=== PATIENT | female | born 1980 | race Caucasian/White ===

== ENCOUNTER 2024-07-06 17:09 | Observation (INO) | payer OTHER, SELFPAY ==
[2024-07-02 15:18] VITALS: BMI 36.0
[2024-07-06] VITALS (22 sets, daily range): BP systolic 115–173; BP diastolic 67–120; PULSE 57–105; RESP 16–20; TEMP 36.6–37.2; O2SAT 95–100
--- NOTE | 2024-07-06 | FL_ITS ---
FINAL REPORT CLINICAL HISTORY: ERCP IN OR FT .8 MINS 35.73 mGy FINDINGS: Fluoroscopic imaging was provided for ERCP. There is balloon dilatation of the distal common bile duct. No contrast is seen within the biliary system. 0.8 minutes of fluoroscopy time was reported. 35.73 mGy. IMPRESSION: Fluoroscopy for ERCP. Reviewed, Interpreted and Dictated by Azar Alfaro MD Transcribed by Breanna Judge Authenticated and [facility]
[2024-07-06 13:46] LABS: Urine Pregnancy, HCG Qual. Negative (Negative)
--- NOTE | 2024-07-06 13:57 | P.PNANES_ITS ---
[facility] Disclaimer: The information contained in this section may have been updated after the patient was seen, as this information can be updated by other users. Medical History Chronic migraine Hyperthyroidism Hypertension Anxiety Depression Surgical History History of cholecystectomy H/O tubal ligation H/O knee surgery H/O: H/O gastric sleeve Family History Father Coronary artery disease Aortic aneurysm Social History Smoking Status: Never smoker alcohol intake: current substance use type: denies use current occupational status: employed Travel in the last 8 weeks: None Have you lived/traveled outside US in past 30 days?: No Contact w/someone who lives/traveled outside US past 30 days?: No Exposure to someone with infectious disease in past 14 days?: No Do you have a fever (greater than 100.4 F or 38 C)?: No Have you tested positive for COVID-19: No Exposed to someone with COVID-19 in past 14 days?: No Do you have a sore throat?: No Do you have a cough?: No Do you have any weakness?: No Do you have any diarrhea?: No Are you experiencing any unusual bleeding?: No Do you have any muscle aches/pain?: No Do you have any abdominal pain?: No Are you experiencing loss of taste or smell?: No [facility] Anesthesia Checklist Patient Identification Patient Identification: Arm Band and Verbal (Name & ) Structural Data Admitted From: Home Planned Operative Procedure/s: ERCP Consent for Planned Operative Procedure(s) Verified: Yes Verified Documents: Surgical Consent NPO Status Verified Time NPO: 00:00 Additional verifications Patient : No Anesthesia Reactions: No Hx Blood Transfusions: No Blood Transfusion Reaction: No Cephalosporin Allergy: No Previous Colonoscopy: No Cardiovascular Assessment Heart Sounds: S1 & S2 Pulse Strength: Baseline Pulse Rhythm: Regular Peripheral Edema: No Airway Assessment Mallampati Score:: Class I C-Spine Mobility Assessed: Yes TMJ Mobility Assessed: Yes Dentition: Good Dentition Neurological Assessment Level of Consciousness: Awake, Alert and Appropriate Hx Seizures: No Numbness or tingling in extremities: No Anesthesia Plan Anesthesia Risk discussed: Yes Anesthesia Plan: Verified ASA Class: III Anesthesia Type: General
[2024-07-06] MEDS: LACTATED RINGERS 1000ML 1,000 ML 50 ML IV ×2 (14:16→14:17)
--- NOTE | 2024-07-06 15:17 | P.HP_ITS ---
History of Present Illness *Admission Date: 07/06/24 *Reason for visit:: Right upper quadrant abdominal pain/sphincter of Oddi dysfunction *History of present illness: Mrs. Davila is a 43-year-old female with recurrence of her right upper quadrant abdominal pain that started back a couple of months ago. This is constant and daily. She does have a former history of sphincter of Oddi dysfunction and had ERCP with biliary sphincterotomy. She is here for ERCP and possible sphincterotomy/sphincteroplasty. The examination is deemed medically necessary for ERCP. The patient has been seen, interviewed and examined prior to the procedure by both myself and the anesthesia provider. [facility] Disclaimer: The information contained in this section may have been updated after the patient was seen, as this information can be updated by other users. Medical History (Updated 07/06/24 @ 14:01 by Velia Peguero RN) Jugular vein thrombosis, right Neuropathy Hypothyroid History of gastroesophageal reflux (GERD) Stroke Chronic migraine Hypertension Anxiety Depression Surgical History (Updated 07/06/24 @ 14:01 by Velia Peguero RN) History of surgery History of cholecystectomy H/O tubal ligation H/O knee surgery H/O: H/O gastric sleeve Family History Father Coronary artery disease Aortic aneurysm Social History (Updated 07/06/24 @ 14:02 by Velia Peguero RN) Smoking Status: Never smoker alcohol intake: current substance use type: denies use current occupational status: employed Travel in the last 8 weeks: None Have you lived/traveled outside US in past 30 days?: No Contact w/someone who lives/traveled outside US past 30 days?: No Exposure to someone with infectious disease in past 14 days?: No Do you have a fever (greater than 100.4 F or 38 C)?: No Have you tested positive for COVID-19: Yes Exposed to someone with COVID-19 in past 14 days?: No Do you have a sore throat?: No Do you have a cough?: No Do you have any weakness?: No Are you experiencing any nausea/vomitting?: No Do you have any diarrhea?: No Are you experiencing any unusual bleeding?: No Do you have any muscle aches/pain?: No Do you have any abdominal pain?: No Are you experiencing loss of taste or smell?: No Review of Systems Review of Systems Review of systems (narrative): Negative *Cardiovascular Comments: Negative *Gastrointestinal Comments: Negative *Genitourinary Comments: Negative *Musculoskeletal Comments: Negative *Neurologic Comments: Negative Meds Home Medications and Allergies Home Medications ?Medication ?Instructions ?Recorded ?Confirmed ?Type alprazolam 0.5 mg tablet 0.5 mg PO DAILY 06/15/24 07/06/24 History cariprazine 1.5 mg capsule 1.5 mg PO DAILY 06/15/24 07/06/24 History (Vraylar) cyanocobalamin (vitamin B-12) 1,000 mcg SQ [id number] 06/15/24 07/06/24 History 1,000 mcg/mL injection solution dicyclomine 20 mg tablet 20 mg PO TID 06/15/24 07/06/24 History ergocalciferol (vitamin D2) 1,250 1,250 mcg PO WEEKLY 06/15/24 07/06/24 History mcg (50,000 unit) capsule famotidine 40 mg tablet 40 mg PO BID 06/15/24 07/06/24 History flecainide 50 mg tablet 50 mg PO BID 06/15/24 07/06/24 History folic acid 1 mg tablet 1 mg PO DAILY 06/15/24 07/06/24 History gabapentin 300 mg capsule 300 mg PO TID 06/15/24 07/06/24 History levothyroxine 175 mcg tablet 175 mcg PO DAILY 06/15/24 07/06/24 History (Synthroid) pantoprazole 40 mg tablet,delayed 40 mg PO ONCE 06/15/24 07/06/24 History release promethazine 25 mg tablet 25 mg PO Q6H PRN . 06/15/24 07/06/24 History rimegepant 75 mg disintegrating 75 mg PO Q OTHER DAY 06/15/24 07/06/24 History tablet (Nurtec ODT) rivaroxaban 10 mg tablet (Xarelto) 10 mg PO DAILY 06/15/24 07/06/24 History tizanidine 4 mg tablet 4 mg PO Q6H 06/15/24 07/06/24 History ubrogepant 100 mg tablet (Ubrelvy) 100 mg PO DAILY 06/15/24 07/06/24 History valsartan 80 mg tablet 80 mg PO DAILY 06/15/24 07/06/24 History New Prescriptions to Start Prescriptions: Allergies Allergy/AdvReac Type Severity Reaction Status Date / Time Sulfa (Sulfonamide Allergy Unknown Verified 07/06/24 13:40 Antibiotics) allergy reaction Exam Data for Last 24 hours Vital signs and Labs for Last 24 Hours: Temp Pulse Resp BP Pulse Ox O2 Del Method 97.9 F 57 L 18 150/91 H 100 Room Air 07/06/24 13:45 07/06/24 13:45 07/06/24 13:45 07/06/24 13:45 07/06/24 13:45 07/06/24 13:45 Laboratory Results - last 24 hr 07/06/24 13:28: Urine HCG, Qual Negative *Routine HEENT Exam Head: Present normocephalic Eye: Present EOMI and PERRL ENT: Present mucous membranes moist *Routine Neck Exam Neck: Present supple *Routine Respiratory Exam Respiratory: Present CTA bilaterally *Routine Cardiovascular Exam Cardiovascular: Present RRR *Routine Abdominal Exam Abdominal: Present soft and normoactive bowel sounds; Absent tenderness *Routine Rectal Exam Rectal:: deferred *Routine Genitalia Exam Genitalia:: deferred *Routine Extremities Exam Extremities: Absent cyanosis, clubbing or edema *Routine Skin Exam Skin: Present warm; Absent rash *Routine Neurological Exam Neurological: Present alert and oriented X3 Assessment and Plan *Assessment and plan (1) RUQ pain: Status: Acute Category: Medical Code(s): R10.11 - Right upper quadrant pain (2) Sphincter of Oddi dysfunction: Status: Acute Category: Medical Code(s): K83.4 - Spasm of sphincter of Oddi Plan A/P: 1. Right upper quadrant abdominal pain with prior history of sphincter of Oddi dysfunction and prior biliary sphincterotomy is the preprocedural diagnosis. The patient will be anesthetized/sedated using MAC sedation. The patient has been seen and examined. Cardiac and lung assessment prior to the examination is stable. Proceed with planned diagnostic/therapeutic ERCP to assess for restenosis of the ampulla
--- NOTE | 2024-07-06 15:20 | HMH.PROCNOTE ---
[facility] Procedure Note Date: 07/06/24 Time: 15:39 Procedure Note:: ERCP procedure Report: Endoscopic retrograde cholangiopancreatography with biliary sphincterotomy and biliary sphincteroplasty (TTS balloon dilation) Endoscopist: Mario Stovall II, MD Referring Physician: Grzegorz Santamaria MD [id number], [facility] [place] [address] Date of Procedure: July 06, 2024 Equipment: Olympus 180 side viewing endoscope duodenoscope Sedation: MAC sedation Indication: Mrs. Davila is a 43-year-old female with a history of sphincter of Oddi dysfunction/biliary stenosis. The patient did have prior ERCP with biliary sphincterotomy and had done very well since her ERCP which was more than 10 years ago. She just had recurrence of right upper quadrant abdominal pain a couple of months ago. It is a dull pain with intermittent episodes of severe burning and stabbing pain in the right upper quadrant that can last up to an hour and be severe. She did have a CAT scan and lab work by her primary care physician and at [facility] and these were reportedly normal. She does have a lot of bloating, belching and gassiness. She will occasionally have some diarrhea. Procedure: Prior to the procedure, a history and physical exam was performed, and patient's medications and allergies were reviewed. The risks, benefits and alternatives of the sedation and procedure were discussed with the patient. All questions were answered and informed consent was obtained. The patient was brought to the fluoroscopic radiology room. Patient identification and proposed procedure were verified by the physician and the nurse. The patient was placed in a swimmer's position between left lateral decubitus and prone position and the scope was passed under direct vision. Throughout the procedure, the patient's blood pressure, pulse, and oxygen saturations were monitored continuously. The ERCP was accomplished without difficulty. The patient tolerated the procedure well. Findings: The duodenoscope was passed directly into the upper esophagus and advanced to the second portion of the duodenum. The ampulla was well-visualized. The common bile duct was selectively cannulated with a guidewire and cannula. A cholangiogram was performed and there was normal filling of the common bile duct which was approximately 7 to 8 mm and normal filling of the common hepatic duct, bifurcation and intrahepatic biliary system. There were no strictures or filling defects. There was slow drainage of bile and contrast suggestive of some recurrence of sphincter of Oddi dysfunction. I did extend the prior biliary sphincterotomy by 2 to 3 mm with extravasation of bile and contrast. Next, I did perform sphincteroplasty with TTS balloon dilation of the ampulla to 8 mm with a TTS hydrostatic balloon. The pancreatic duct was not cannulated intentionally. Impression: 1. Recurrent sphincter of Oddi dysfunction status post biliary sphincterotomy and sphincteroplasty (TTS balloon dilation to 8 mm) Plan: I will discuss the findings with the patient and family. I would discontinue dicyclomine. I would consider low-dose buspirone which has been treatment to improve visceral/sphincter of Oddi accommodation and neuromodulation.
--- NOTE | 2024-07-06 15:51 | EXP.ANES.I ---
[facility] Anesthesia Record Part I Anesthesia Record I Intake, IV Amount: 600 Hydration: Adequate Estimated blood loss (mL): 0 Urine output (mL): 0 Blood Products used (#): none Blood Pressure: 128/86 SaO2: 100 Pulse Rate: 84 Airway Patency: Patent Respiratory Rate: 16 Temperature: 98.1 F Patient is:: Drowsy and Stable Stable to PACU at:: 15:50
--- NOTE | 2024-07-06 16:10 | SUR.PHASEI ---
pt started c/o chest tightness and became hypertensive. MANUEL Morin called for orders. RT caled for ekg.
--- NOTE | 2024-07-06 16:13 | SUR.PHASEI ---
Verbal orders given by POWDERED METAL SUPERVISOR RT at the bedside for ekg
[2024-07-06] MEDS: HYDRALAZINE 20MG/ML VIAL 20 MG (16:15)
--- NOTE | 2024-07-06 16:15 | ECG_ITS ---
APPROVED REPORT Exam: Resting ECG HR:65 bpm ECG Measurements Heart Rate 65 AXES NJ 159 P 53 QRSd 88 QRS 24 QT 427 T 0 QTc 438 Conclusion SINUS RHYTHM NONSPECIFIC T-WAVE ABNORMALITY BORDERLINE ECG UNCONFIRMED REPORT Electronically signed by : Ortiz Macario MD 07/08/2024 08:51:09
[2024-07-06] MEDS: diphenhydrAMINE 50MG/ML VIAL 50 MG (16:25)
--- NOTE | 2024-07-06 16:25 | SUR.PHASEI ---
pt became flushed and face became red faced. verbal order for benadryl given by carmen leal
[2024-07-06] MEDS: METOPROLOL TARTRATE 5MG/5ML VIAL 5 MG IV (16:30)
--- NOTE | 2024-07-06 16:30 | SUR.PHASEI ---
mel at the bedside. pt hypertensive at this time. Mel gave verbal order for metoprolol.
--- NOTE | 2024-07-06 16:47 | SUR.PHASEI ---
spoke with dr fleming, he recommended a hospitalist consult. Dr Mcgowan called at this time for consult
--- NOTE | 2024-07-06 16:50 | SUR.PHASEI ---
Dr stanton and Dr Stovall at the bedside
[2024-07-06] MEDS: LORazepam 2MG/ML VIAL 2 MG (16:51)
[2024-07-06] MEDS: ENALAPRILAT 2.5MG/2ML VIAL 1.25 MG IV (17:03)
--- NOTE | 2024-07-06 17:08 | SUR.PHASEII ---
Spoke with talon Clifton. pt to be admitted to room 213.
[2024-07-06 17:32] LABS: Basophils % 0.5 % (0.1-2.0); Eosinophils % 0.5 % (0.1-12.0); Hematocrit 43.6 % (37.0-47.0); Hemoglobin 14.7 g/dL (12.2-16.2); Lymphocytes # 1.3 K/mm3 (0.7-4.5); Mean Corpuscular HGB Conc 33.7 g/dL (31.8-35.4); Mean Corpuscular Hemoglobin 31.9 pg (27.0-31.2); Mean Corpuscular Volume 94.6 fl (81-99); Mean Platelet Volume 10.8 fl (7.4-10.4); Monocytes # 0.3 K/mm3 (0.1-1.0); Monocytes % 3.8 % (1.7-9.3); Neutrophils # 6.6 K/mm3 (1.8-7.8); Neutrophils % 78.8 % (37.0-80.0); Platelet Count 293 K/mm3 (142-424); Red Blood Count 4.61 M/mm3 (4.20-5.40); Red Cell Distribution Width 12.3 % (11.5-17.5); White Blood Count 8.4 K/mm3 (4.8-10.8)
--- NOTE | 2024-07-06 17:32 | P.HP_ITS ---
History of Present Illness *Admission Date: 07/06/24 *Reason for visit:: chest pressure *History of present illness: Mrs. Davila is a 43-year-old female with recurrence of her right upper quadrant abdominal pain that started back a couple of months ago. She has been having constant daily discomfort. Former history of sphincter of Oddi dysfunction. Was brought in for elective ERCP with biliary sphincterotomy. Tolerated procedure well with good results. While in PACU however patient developed severe hypertension with systolics 170-190. Developed chest pressure. Having numerous PVCs. EKG was obtained that did not show any significant ischemic changes or ST elevations. Medicine consulted to evaluate in the PACU. Patient having pressure-like sensation with her hypertension. Denies nausea or vomiting but does have flushed appearance. After discussion with GI, both agreed that patient would benefit from observation overnight and management of her hypertension and serial enzymes for her heart. Admitted to medicine with monitoring on telemetry. Upon further questioning, patient states she had a stress test about 8 to 9 months ago that showed PVCs but no other ischemic injury. Was started on flecainide at that time for PVCs and has had significant improvement in her arrhythmia. Has been tolerating valsartan 80 mg nightly for blood pressure with better improvement. Used to have blood pressures in the 150 range until starting that medication and now normally has systolics 1 20-1 30. Regular GERD that is controlled with PPI and H2 db. Alert and oriented x 4. at bedside. [facility] Disclaimer: The information contained in this section may have been updated after the patient was seen, as this information can be updated by other users. Medical History (Updated 07/06/24 @ 19:02 by Martín Molrey MD) Jugular vein thrombosis, right Neuropathy Hypothyroid History of gastroesophageal reflux (GERD) Stroke Chronic migraine Hypertension Anxiety Depression Surgical History History of surgery History of cholecystectomy H/O tubal ligation H/O knee surgery H/O: H/O gastric sleeve Family History Father Coronary artery disease Aortic aneurysm Social History Smoking Status: Never smoker alcohol intake: current substance use type: denies use current occupational status: employed Travel in the last 8 weeks: None Have you lived/traveled outside US in past 30 days?: No Contact w/someone who lives/traveled outside US past 30 days?: No Exposure to someone with infectious disease in past 14 days?: No Do you have a fever (greater than 100.4 F or 38 C)?: No Have you tested positive for COVID-19: Yes Exposed to someone with COVID-19 in past 14 days?: No Do you have a sore throat?: No Do you have a cough?: No Do you have any weakness?: No Are you experiencing any nausea/vomitting?: No Do you have any diarrhea?: No Are you experiencing any unusual bleeding?: No Do you have any muscle aches/pain?: No Do you have any abdominal pain?: No Are you experiencing loss of taste or smell?: No Review of Systems Review of Systems Review of systems (narrative): 14 point review of systems performed, pertinent positives and negatives as per HPI Meds Home Medications and Allergies Home Medications ?Medication ?Instructions ?Recorded ?Confirmed ?Type alprazolam 0.5 mg tablet 0.5 mg PO DAILY 06/15/24 07/06/24 History cariprazine 1.5 mg capsule 1.5 mg PO DAILY 06/15/24 07/06/24 History (Vraylar) cyanocobalamin (vitamin B-12) 1,000 mcg SQ .[id number] 06/15/24 07/06/24 History 1,000 mcg/mL injection solution dicyclomine 20 mg tablet 20 mg PO TID 06/15/24 07/06/24 History ergocalciferol (vitamin D2) 1,250 1,250 mcg PO WEEKLY 06/15/24 07/06/24 History mcg (50,000 unit) capsule famotidine 40 mg tablet 40 mg PO BID 06/15/24 07/06/24 History flecainide 50 mg tablet 50 mg PO BID 06/15/24 07/06/24 History folic acid 1 mg tablet 1 mg PO DAILY 06/15/24 07/06/24 History gabapentin 300 mg capsule 300 mg PO TID 06/15/24 07/06/24 History levothyroxine 175 mcg tablet 175 mcg PO DAILY 06/15/24 07/06/24 History (Synthroid) pantoprazole 40 mg tablet,delayed 40 mg PO ONCE 06/15/24 07/06/24 History release promethazine 25 mg tablet 25 mg PO Q6H PRN . 06/15/24 07/06/24 History rimegepant 75 mg disintegrating 75 mg PO Q OTHER DAY 06/15/24 07/06/24 History tablet (Nurtec ODT) rivaroxaban 10 mg tablet (Xarelto) 10 mg PO DAILY 06/15/24 07/06/24 History tizanidine 4 mg tablet 4 mg PO Q6H 06/15/24 07/06/24 History ubrogepant 100 mg tablet (Ubrelvy) 100 mg PO DAILY 06/15/24 07/06/24 History valsartan 80 mg tablet 80 mg PO DAILY 06/15/24 07/06/24 History buspirone 10 mg tablet 10 mg PO BID #60 tabs 07/06/24 Rx [id number] 1 cap PO .With meals #100 caps 07/06/24 Rx 36,000-114,000-180,000 unit capsule,delay rel (Creon) New Prescriptions to Start Prescriptions: buspirone Mario Stovall II [id number] [Creon] Mario Stovall II Allergies Allergy/AdvReac Type Severity Reaction Status Date / Time Sulfa (Sulfonamide Allergy Unknown Verified 07/06/24 13:40 Antibiotics) allergy reaction Exam Data for Last 24 hours Vital signs and Labs for Last 24 Hours: Temp Pulse Resp BP Pulse Ox O2 Del Method 98.1 F 94 H 18 158/96 H 100 Room Air 07/06/24 15:52 07/06/24 17:10 07/06/24 17:10 07/06/24 17:10 07/06/24 17:10 07/06/24 17:10 Laboratory Results - last 24 hr 07/06/24 13:28: Urine HCG, Qual Negative I & O for Last 24 hours: Intake & Output 07/03/24 07/04/24 07/05/24 07/06/24 23:59 23:59 23:59 23:59 Intake Total 600 / 600 Balance 600 / 600 Constitutional Constitutional: mild distress, obese and cooperative *Routine HEENT Exam Head: Present normocephalic Eye: Present EOMI and PERRL ENT: Present mucous membranes moist Comments: Facial flushing *Routine Neck Exam Neck: Present supple *Routine Respiratory Exam Respiratory: Present CTA bilaterally; Absent rhonchi, wheezes or crackles *Routine Cardiovascular Exam Cardiovascular: Present RRR *Routine Abdominal Exam Abdominal: Present soft and normoactive bowel sounds; Absent tenderness *Routine Rectal Exam Rectal:: deferred *Routine Genitalia Exam Genitalia:: deferred *Routine Extremities Exam Extremities: Absent cyanosis, clubbing or edema *Routine Skin Exam Skin: Present intact and warm; Absent rash *Routine Neurological Exam Neurological: Present alert, oriented X3 and moving all extremities; Absent altered mental status Assessment and Plan *Assessment and plan (1) Hypertensive urgency: Status: Acute Category: Medical Code(s): I16.0 - Hypertensive urgency (2) Hypothyroid: Status: Acute Category: Medical Code(s): E03.9 - Hypothyroidism, unspecified (3) Sphincter of Oddi dysfunction: Status: Acute Category: Medical Code(s): K83.4 - Spasm of sphincter of Oddi (4) Neuropathy: Status: Chronic Category: Medical Code(s): G62.9 - Polyneuropathy, unspecified (5) Jugular vein thrombosis, right: Status: Chronic Category: Medical Code(s): I82.890 - Acute embolism and thrombosis of other specified veins (6) Exocrine pancreatic insufficiency: Status: Acute Category: Medical Code(s): K86.81 - 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 Davila is a 43-year-old female history of GERD, hypertension, hypothyroid: Anxiety and depression, and sphincter of Oddi dysfunction. Presented for elective ERCP and developed chest pressure and hypertension after procedure. Medicine consulted to evaluate for possible admission. After discussion with GI, requests admission for further monitoring and addressing blood pressure. I agreed to admit for further care. Seeing some improvement with enalapril 1.25 mg given in the PACU. Currently in sinus rhythm. Stable on room air. Upon arrival to the floor, had single episode of nausea and vomiting. Remains afebrile. Alert oriented x 4. Problems addressed as follows: Hypertensive urgency Chest pressure -EKG per my review in the PACU did not show any ST changes or ischemic changes. Initial troponin obtained 0.01. -Administered 1.25 mg enalapril with improvement in blood pressure. Will resume home regimen of flecainide 50 mg twice daily and valsartan 80 mg nightly -Monitor overnight on telemetry for improvement in symptoms and for any ischemic changes. -Previous stress test per her report was normal. -Ordered repeat CBC, CMP, magnesium for the morning - Labs obtained. White count normal 8.4, hemoglobin 14.7. Kidney function normal with BUN 5, creatinine 0.8. Liver enzymes normal with bilirubin 0.6, AST 71, ALT 14, and alk phos 63. Hypothyroid: TSH grossly abnormal above 90. Will administer IV levothyroxine this evening. Resume oral levothyroxine 175 mcg in the morning with no other medications. Needs close follow-up in 6 weeks with repeat TSH to monitor for improvement Continue home gabapentin 300mg 3 times a day for neuropathy Continue pantoprazole 40 mg daily and famotidine 40 mg twice daily for GERD Continue Xarelto 10 mg nightly for jugular vein thrombosis Mood disorder (anxiety and depression): Continue BuSpar 10 mg twice daily and Vraylar 1.5 mg daily. Xanax 0.5 mg daily as needed GI to follow in the morning and post ERCP setting. Continue Bentyl 20 mg 3 times a day for abdominal pain Full code Xarelto 10 mg daily Advance diet
--- NOTE | 2024-07-06 17:32 | PC.NURSE ---
arrived by stretcher from surgery
[2024-07-06 17:35] LABS: Chloride 104 mmol/L (98-107)
[2024-07-06 17:36] LABS: Albumin Level 4.2 g/dl (3.5-5.0); Potassium 3.8 mmoL/L (3.5-5.1); Sodium 136 mmol/L (136-145)
[2024-07-06 17:38] LABS: Blood Urea Nitrogen 5 mg/dl (7-17); Creatinine Clearance Estimated 138 mL/min (50-200); Estimated Glomerular Filt Rate 79 ml/min (>60); GFR (African American) 95 ML/MIN (>60)
[2024-07-06 17:39] LABS: Alanine Aminotransferase 14 U/L (12-78); Albumin/Globulin Ratio 1.6 (1.1-1.8); Alkaline Phosphatase 63 U/L (38-126); Anion Gap 12.8 mEq/L (5-15); Aspartate Amino Transferase 71 U/L (14-36); Bilirubin,Total 0.6 mg/dl (0.2-1.3); Calcium 8.6 mg/dl (8.4-10.2); Carbon Dioxide 23 mmol/L (22.0-30.0); Globulin 2.7 g/dL (1.3-3.2); Glucose 94 mg/dl (74-100); Total Protein,Serum 6.9 g/dl (6.3-8.2)
[2024-07-06 17:40] LABS: INR 1.13 (0.9-1.1); Prothrombin Time 12.3 seconds (9.2-12.1)
[2024-07-06 17:58] LABS: Troponin I < 0.01 ng/ml (0.00-0.034)
[2024-07-06] MEDS: ENOXAPARIN 40MG/0.4ML SYRINGE 40 MG SUBCUT (18:27)
--- NOTE | 2024-07-06 18:42 | P.PNANES_ITS ---
[facility] Disclaimer: The information contained in this section may have been updated after the patient was seen, as this information can be updated by other users. Medical History Jugular vein thrombosis, right Neuropathy Hypothyroid History of gastroesophageal reflux (GERD) Stroke Chronic migraine Hypertension Anxiety Depression Surgical History History of surgery History of cholecystectomy H/O tubal ligation H/O knee surgery H/O: H/O gastric sleeve Family History Coronary artery disease Father Aortic aneurysm Father Social History Smoking Status: Never smoker alcohol intake: current substance use type: denies use current occupational status: employed Travel in the last 8 weeks: None [facility] Anesthesia Checklist Patient Identification Patient Identification: Arm Band and Verbal (Name & ) Structural Data Admitted From: Home Planned Operative Procedure/s: D and C Consent for Planned Operative Procedure(s) Verified: Yes Verified Documents: Surgical Consent NPO Status Verified Time NPO: 10:30 Additional verifications Patient : Yes Anesthesia Reactions: No Hx Blood Transfusions: No Blood Transfusion Reaction: No Cephalosporin Allergy: No Previous Colonoscopy: No Cardiovascular Assessment Heart Sounds: S1 & S2 Pulse Strength: Baseline Pulse Rhythm: Regular Peripheral Edema: No Airway Assessment Mallampati Score:: Class II C-Spine Mobility Assessed: Yes TMJ Mobility Assessed: Yes Dentition: Good Dentition Neurological Assessment Level of Consciousness: Awake, Alert and Appropriate Hx Seizures: No Numbness or tingling in extremities: No Anesthesia Plan Anesthesia Risk discussed: Yes Anesthesia Plan: Verified ASA Class: II Anesthesia Type: General
--- NOTE | 2024-07-06 18:45 | EXP.ANES.I ---
[facility] Anesthesia Record Part I Anesthesia Record I Intake, IV Amount: 500 Hydration: Adequate Estimated blood loss (mL): 50 Urine output (mL): 200 Blood Products used (#): none Blood Pressure: 98/59 SaO2: 100 Pulse Rate: 78 Airway Patency: Patent Respiratory Rate: 16 Temperature: 97.0 F Patient is:: Drowsy Stable to PACU at:: 18:40
[2024-07-06] MEDS: FLECAINIDE 50MG TABLET 50 MG PO (21:16)
[2024-07-06] MEDS: GABAPENTIN 300MG CAPSULE 300 MG PO (21:35)
[2024-07-06] MEDS: PANTOPRAZOLE 40MG TABLET 40 MG PO (21:35)
[2024-07-06] MEDS: IRBESARTAN 75MG TABLET 75 MG PO (21:35)
[2024-07-06] MEDS: RIVAROXABAN 10MG TABLET 10 MG PO (21:35)
[2024-07-06] MEDS: LEVOTHYROXINE SODIUM 100 MCG VIAL 200 MCG IV (21:52)
[2024-07-06] MEDS: diphenhydrAMINE 50MG/ML VIAL 25 MG IV (22:22)
[2024-07-06] MEDS: PROMETHAZINE HCL 25MG/ML 1ML VIAL 6.25 MG IV (22:31)
[2024-07-06] MEDS: ACETAMINOPHEN 325MG TAB 650 MG PO (23:55)
[2024-07-07] VITALS: PULSE 70
[2024-07-07 00:25] VITALS: BP 140/98; PULSE 86; RESP 16; TEMP 36.9
[2024-07-07 04:00] VITALS: BP 124/78; PULSE 78; PULSE 80; TEMP 36.8; O2SAT 97; BMI 35.8
--- NOTE | 2024-07-07 05:09 | PC.NURSE ---
V/s, closely monitored per post vitals, ox4. Pt c/o face feeling like it was on fire but the rest of her body was cool. Provider notified, Benadryl ordered. Pt c/o headache, provider notified, see MAR for treatment. Pt stated headache was resolved. Pt's face was less flush after Benadryl treatment. Pt c/o nausea, see MAR for treatment. PLan of care ongoing.
[2024-07-07 06:41] LABS: Basophils % 0.4 % (0.1-2.0); Eosinophils # 0.2 K/mm3 (0.0-0.4); Eosinophils % 2.3 % (0.1-12.0); Hematocrit 42.8 % (37.0-47.0); Hemoglobin 14.2 g/dL (12.2-16.2); Lymphocytes # 1.5 K/mm3 (0.7-4.5); Lymphocytes % 18.5 % (10-50); Mean Corpuscular HGB Conc 33.2 g/dL (31.8-35.4); Mean Corpuscular Hemoglobin 32.1 pg (27.0-31.2); Mean Corpuscular Volume 96.6 fl (81-99); Mean Platelet Volume 11.9 fl (7.4-10.4); Monocytes # 0.4 K/mm3 (0.1-1.0); Monocytes % 5.1 % (1.7-9.3); Neutrophils % 73.3 % (37.0-80.0); Platelet Count 150 K/mm3 (142-424); Red Blood Count 4.43 M/mm3 (4.20-5.40); Red Cell Distribution Width 12.3 % (11.5-17.5); White Blood Count 8.2 K/mm3 (4.8-10.8)
[2024-07-07 07:02] LABS: Albumin Level 3.5 g/dl (3.5-5.0); Chloride 108 mmol/L (98-107); Potassium 3.8 mmoL/L (3.5-5.1); Sodium 135 mmol/L (136-145)
[2024-07-07 07:05] LABS: Alanine Aminotransferase 12 U/L (12-78); Albumin/Globulin Ratio 1.3 (1.1-1.8); Alkaline Phosphatase 80 U/L (38-126); Anion Gap 11.8 mEq/L (5-15); Aspartate Amino Transferase 85 U/L (14-36); Bilirubin,Total 0.8 mg/dl (0.2-1.3); Blood Urea Nitrogen 5 mg/dl (7-17); Calcium 8.4 mg/dl (8.4-10.2); Carbon Dioxide 19 mmol/L (22.0-30.0); Creatinine Clearance Estimated 184 mL/min (50-200); Estimated Glomerular Filt Rate 110 ml/min (>60); GFR (African American) 133 ML/MIN (>60); Globulin 2.6 g/dL (1.3-3.2); Glucose 85 mg/dl (74-100); Magnesium 1.9 mg/dl (1.6-2.3); Total Protein,Serum 6.1 g/dl (6.3-8.2)
--- NOTE | 2024-07-07 07:37 | P.PN_ITS ---
Subjective *Date: 07/07/24 *Time: 07:37 Interval history: No abdominal or chest complaints this morning. Patient remained stable overnight. Exam Data for Last 24 hours Vital signs and Labs for Last 24 Hours: Temp Pulse Resp BP Pulse Ox O2 Del Method O2 Flow Rate 98.2 F 78 16 124/78 97 Room Air 3 07/07/24 04:00 07/07/24 04:00 07/07/24 00:25 07/07/24 04:00 07/07/24 04:00 07/07/24 06:30 07/06/24 19:49 Laboratory Results - last 24 hr 07/06/24 13:28: Urine HCG, Qual Negative 07/06/24 17:12: WBC 8.4, RBC 4.61, Hgb 14.7, Hct 43.6, MCV 94.6, MCH 31.9 H, MCHC 33.7, RDW 12.3, Plt Count 293, MPV 10.8 H, Neut % (Auto) 78.8, Lymph % (Auto) 16.0, [place] % (Auto) 3.8, Eos % (Auto) 0.5, Baso % (Auto) 0.5, Neut # (Auto) 6.6, Lymph # (Auto) 1.3, [place] # (Auto) 0.3, Eos # (Auto) 0.0, Baso # (Auto) 0.0, PT 12.3 H, INR 1.13 H, Sodium 136, Potassium 3.8, Chloride 104, Carbon Dioxide 23, Anion Gap 12.8, BUN 5 L, Creatinine 0.80, Estimated Creat Clear 138, Estimated GFR 79, Est GFR ( Amer) 95, Glucose 94, Calcium 8.6, Total Bilirubin 0.6, AST 71 H, ALT 14, Alkaline Phosphatase 63, Troponin I < 0.01, Total Protein 6.9, Albumin 4.2, Globulin 2.7, Albumin/Globulin Ratio 1.6, TSH 92.30 H 07/07/24 06:20: WBC 8.2, RBC 4.43, Hgb 14.2, Hct 42.8, MCV 96.6, MCH 32.1 H, MCHC 33.2, RDW 12.3, Plt Count 150 D, MPV 11.9 H, Neut % (Auto) 73.3, Lymph % (Auto) 18.5, [place] % (Auto) 5.1, Eos % (Auto) 2.3, Baso % (Auto) 0.4, Neut # (Auto) 6.0, Lymph # (Auto) 1.5, [place] # (Auto) 0.4, Eos # (Auto) 0.2, Baso # (Auto) 0.0, Sodium 135 L, Potassium 3.8, Chloride 108 H, Carbon Dioxide 19 L, Anion Gap 11.8, BUN 5 L, Creatinine 0.60 D, Estimated Creat Clear 184, Estimated GFR 110, Est GFR ( Amer) 133 D, Glucose 85, Calcium 8.4, Magnesium 1.9, Total Bilirubin 0.8, AST 85 H, ALT 12, Alkaline Phosphatase 80, Total Protein 6.1 L, Albumin 3.5 D, Globulin 2.6, Albumin/Globulin Ratio 1.3 I & O for Last 24 hours: Intake & Output 07/04/24 07/05/24 07/06/24 07/07/24 23:59 23:59 23:59 23:59 Intake Total 1580 / 1580 Balance 1580 / 1580 Weight 209 lb 15.986 oz *Routine Abdominal Exam Abdominal: Present soft and normoactive bowel sounds Comments: Soft benign abdomen, normal active bowel sounds Assessment and Plan *Assessment and plan (1) Sphincter of Oddi dysfunction: Status: Acute Category: Medical Code(s): K83.4 - Spasm of sphincter of Oddi (2) RUQ pain: Status: Acute Category: Medical Code(s): R10.11 - Right upper quadrant pain (3) Hepatic flexure syndrome: Status: Acute Category: Medical Code(s): K59.89 - Other specified functional intestinal disorders (4) Bloating: Status: Acute Category: Medical Code(s): R14.0 - Abdominal distension (gaseous) (5) Exocrine pancreatic insufficiency: Status: Acute Category: Medical Code(s): K86.81 - Exocrine pancreatic insufficiency Plan 1. Sphincter of Oddi dysfunction versus hepatic flexure syndrome. The patient did have clear improvement after her ERCP more than a decade ago and admitted to have improvement after biliary sphincterotomy and sphincteroplasty yesterday. I do still feel that her gassiness, bloating and bowel irregularity with obstipation on fluoroscopy imaging yesterday are suggestive of hepatic flexure syndrome. I did recommend low-dose buspirone and digestive enzyme supplement (Creon) which have been electronically sent to the pharmacy. The patient is doing well and we can advance diet and discharge this morning. The patient remains hemodynamically stable and did have hypertensive urgency yesterday after procedure with some chest pressure. EKG was normal. Labs normal except for mildly elevated AST level.
[2024-07-07 08:00] VITALS: BP 140/90; BP 144/106; PULSE 80; PULSE 83; RESP 16; TEMP 36.8; O2SAT 100
--- NOTE | 2024-07-07 08:39 | P.PNANES_ITS ---
[facility] Anesthesia Record Part II Anesthesia Record Part II Discharge Time: 17:10 Destination: Medical Surgical Department PACU nurse assessment reviewed?: Yes Patient Condition:: Good Anesthesia Complications:: None Swallowing reflex intact?: Yes Airway Patency: Patent Cyanosis?: No Blood Pressure: 158/96 SaO2: 100 Respiratory Rate: 18 Pulse Rate: 94 Temperature: 98.3 F Mental Status: Alert & Oriented Pain level:: 0 Nausea and/or vomitting:: None Intake, IV Amount: 0 Hydration: Adequate Comments:: Pt admitted to Med/Surg unit for observation postoperatively d/t hypertension and chest tightness.
[2024-07-07 08:41] VITALS: BP 158/96; PULSE 94; RESP 18; TEMP 36.8; O2SAT 100
--- NOTE | 2024-07-07 09:03 | HMH.PHAINT1 ---
Pharmacy Intervention Comments: home medication list verified using list from outpatient pharmacy and pt interview
[2024-07-07] MEDS: FLECAINIDE 50MG TABLET 50 MG PO (09:16)
[2024-07-07] MEDS: FAMOTIDINE 20MG TABLET 40 MG PO (09:16)
[2024-07-07] MEDS: LEVOTHYROXINE 175MCG (0.175MG) TAB 175 MCG PO (09:16)
[2024-07-07] MEDS: GABAPENTIN 300MG CAPSULE 300 MG PO (09:16)
[2024-07-07] MEDS: DICYCLOMINE 10MG CAPSULE 20 MG PO (09:17)
--- NOTE | 2024-07-07 09:55 | PC.NURSE ---
TECH NOTE; NURSE NOTIFIED OF VITAL SIGNS FOR 0800, MANUAL BLOOD PRESSURE OBTAINED AND CHARTED BY GRZEGORZ DEXTER SRNA
[2024-07-07 10:40] LABS: Free T4 (Free Thyroxine) 0.51 ng/dl (0.78-2.19)
[2024-07-07] MEDS: KETOROLAC 30MG/ML VIAL 30 MG IV (10:59)
--- NOTE | 2024-07-07 11:35 | P.DS_ITS ---
General Admission date:: 07/06/24 HPI HPI HPI: Mrs. Davila is a 43-year-old female with recurrence of her right upper quadrant abdominal pain that started back a couple of months ago. She has been having constant daily discomfort. Former history of sphincter of Oddi dysfunction. Was brought in for elective ERCP with biliary sphincterotomy. Tolerated procedure well with good results. While in PACU however patient developed severe hypertension with systolics 170-190. Developed chest pressure. Having numerous PVCs. EKG was obtained that did not show any significant ischemic changes or ST elevations. Medicine consulted to evaluate in the PACU. Patient having pressure-like sensation with her hypertension. Denies nausea or vomiting but does have flushed appearance. After discussion with GI, both agreed that patient would benefit from observation overnight and management of her hypertension and serial enzymes for her heart. Admitted to medicine with monitoring on telemetry. Upon further questioning, patient states she had a stress test about 8 to 9 months ago that showed PVCs but no other ischemic injury. Was started on flecainide at that time for PVCs and has had significant improvement in her arrhythmia. Has been tolerating valsartan 80 mg nightly for blood pressure with better improvement. Used to have blood pressures in the 150 range until starting that medication and now normally has systolics 1 20-1 30. Regular GERD that is controlled with PPI and H2 db. Alert and oriented x 4. at bedside. Hospital Course Hospital Course Hospital Course: Ms. Davila is a 43-year-old female history of GERD, hypertension, hypothyroid, anxiety and depression, and sphincter of Oddi dysfunction. Presented for elective ERCP and developed chest pressure and hypertension after procedure. Medicine consulted to evaluate for possible admission. After discussion with GI, requests admission for further monitoring and addressing blood pressure. I agreed to admit for further care. Seeing some improvement with enalapril 1.25 mg given in the PACU. Currently in sinus rhythm. Stable on room air. Upon arrival to the floor, had single episode of nausea and vomiting. Remains afebrile. Alert oriented x 4. Problems addressed as follows: #Hypertensive urgency #Chest pressure ? Blood pressure elevated to 170s over 100s in the PACU, with chest pressure. ? EKG without acute ischemic changes, troponin is normal. ? Administered 1.25 mg enalapril with improvement in blood pressure. ? Resumed resume home regimen of flecainide 50 mg twice daily and valsartan 80 mg nightly. ? Previous stress test per her report was normal. #Sphincter of Oddi dysfunction ? Recurrent sphincter of Oddi dysfunction status post biliary sphincterotomy and sphincteroplasty (TTS balloon dilation to 8 mm), outpatient procedure. ? Will follow-up with GI within 2 weeks. #Hypothyroid ? TSH 92.3, free T4 low at 0.51. Given IV levothyroxine 175 mcg. ? Resume home levothyroxine 75 mcg, will need close follow-up with PCP for further evaluation and management. #Neuropathy ? Continue home gabapentin 300mg 3 times a day. #GERD ? Continue pantoprazole 40 mg daily and famotidine 40 mg twice daily. #Jugular vein thrombosis ? Continue Xarelto 10 mg nightly. #Mood disorder (anxiety and depression) ? Continue BuSpar 10 mg twice daily and Vraylar 1.5 mg daily. Xanax 0.5 mg daily as needed. Total time spent on discharge: 32 minutes on chart review, counseling, documentation, and direct care with patient. Exam Data for Last 24 hours Vital signs and Labs for Last 24 Hours: Temp Pulse Resp BP Pulse Ox O2 Del Method O2 Flow Rate 98.3 F 83 18 144/106 H 100 Room Air 3 07/07/24 08:00 07/07/24 08:00 07/07/24 08:41 07/07/24 08:00 07/07/24 08:00 07/07/24 09:00 07/06/24 19:49 Laboratory Results - last 24 hr 07/06/24 13:28: Urine HCG, Qual Negative 07/06/24 17:12: WBC 8.4, RBC 4.61, Hgb 14.7, Hct 43.6, MCV 94.6, MCH 31.9 H, MCHC 33.7, RDW 12.3, Plt Count 293, MPV 10.8 H, Neut % (Auto) 78.8, Lymph % (Auto) 16.0, [place] % (Auto) 3.8, Eos % (Auto) 0.5, Baso % (Auto) 0.5, Neut # ( Auto) 6.6, Lymph # (Auto) 1.3, [place] # (Auto) 0.3, Eos # (Auto) 0.0, Baso # (Auto) 0.0, PT 12.3 H, INR 1.13 H, Sodium 136, Potassium 3.8, Chloride 104, Car bon Dioxide 23, Anion Gap 12.8, BUN 5 L, Creatinine 0.80, Estimated Creat Clear 138, Estimated GFR 79, Est GFR ( Amer) 95, Glucose 94, Calcium 8.6, Total Bilirubin 0.6, AST 71 H, ALT 14, Alkaline Phosphatase 63, Troponin I < 0.01, Total Protein 6.9, Albumin 4.2, Globulin 2.7, Albumin/Globulin Ratio 1.6, TSH 92.30 H 07/07/24 06:20: WBC 8.2, RBC 4.43, Hgb 14.2, Hct 42.8, MCV 96.6, MCH 32.1 H, MCHC 33.2, RDW 12.3, Plt Count 150 D, MPV 11.9 H, Neut % (Auto) 73.3, Lymph % (Auto) 18.5, [place] % (Auto) 5.1, Eos % (Auto) 2.3, Baso % (Auto) 0.4, Neut # (Auto) 6.0, Lymph # (Auto) 1.5, [place] # (Auto) 0.4, Eos # (Auto) 0.2, Baso # (Auto) 0.0, Sodium 135 L, Potassium 3.8, Chloride 108 H, Carbon Dioxide 19 L, Anion Gap 11.8, BUN 5 L, Creatinine 0.60 D, Estimated Creat Clear 184, Estimated GFR 110, Est GFR ( Amer) 133 D, Glucose 85, Calcium 8.4, Magnesium 1.9, Total Bilirubin 0.8, AST 85 H, ALT 12, Alkaline Phosphatase 80, Total Protein 6.1 L, Albumin 3.5 D, Globulin 2.6, Albumin/Globulin Ratio 1.3 07/07/24 09:44: Free T4 0.51 L I & O for Last 24 hours: Intake & Output 07/04/24 07/05/24 07/06/24 07/07/24 23:59 23:59 23:59 23:59 Intake Total 1080 / 1080 870 / 870 Balance 1080 / 1080 870 / 870 Weight 95.254 kg Constitutional Constitutional: no acute distress *Routine HEENT Exam Head: Present normocephalic Eye: Present EOMI and PERRL ENT: Present mucous membranes moist *Routine Neck Exam Neck: Present supple; Absent lymphadenopathy *Routine Respiratory Exam Respiratory: Present CTA bilaterally *Routine Cardiovascular Exam Cardiovascular: Present RRR *Routine Abdominal Exam Abdominal: Present soft and normoactive bowel sounds; Absent tenderness *Routine Extremities Exam Extremities: Absent cyanosis, clubbing or edema *Routine Skin Exam Skin: Present warm; Absent rash *Routine Neurological Exam Neurological: Present alert and oriented X3 Results Data Completed and Pending Labs on day of discharge: Labs from last 24 hours 07/07/24 07/07/24 07/06/24 09:44 06:20 17:12 WBC 8.2 8.4 RBC 4.43 4.61 Hgb 14.2 14.7 Hct 42.8 43.6 MCV 96.6 94.6 MCH 32.1 H 31.9 H MCHC 33.2 33.7 RDW 12.3 12.3 Plt Count 150 D 293 MPV 11.9 H 10.8 H Neut % (Auto) 73.3 78.8 Lymph % (Auto) 18.5 16.0 [place] % (Auto) 5.1 3.8 Eos % (Auto) 2.3 0.5 Baso % (Auto) 0.4 0.5 Neut # (Auto) 6.0 6.6 Lymph # (Auto) 1.5 1.3 [place] # (Auto) 0.4 0.3 Eos # (Auto) 0.2 0.0 Baso # (Auto) 0.0 0.0 PT 12.3 H INR 1.13 H Sodium 135 L 136 Potassium 3.8 3.8 Chloride 108 H 104 Carbon Dioxide 19 L 23 Anion Gap 11.8 12.8 BUN 5 L 5 L Creatinine 0.60 D 0.80 Estimated Creat Clear 184 138 Estimated GFR 110 79 Est GFR ( Amer) 133 D 95 Glucose 85 94 Calcium 8.4 8.6 Magnesium 1.9 Total Bilirubin 0.8 0.6 AST 85 H 71 H ALT 12 14 Alkaline Phosphatase 80 63 Troponin I < 0.01 Total Protein 6.1 L 6.9 Albumin 3.5 D 4.2 Globulin 2.6 2.7 Albumin/Globulin Ratio 1.3 1.6 TSH 92.30 H Free T4 0.51 L Urine HCG, Qual 07/06/24 13:28 WBC RBC Hgb Hct MCV MCH MCHC RDW Plt Count MPV Neut % (Auto) Lymph % (Auto) [place] % (Auto) Eos % (Auto) Baso % (Auto) Neut # (Auto) Lymph # (Auto) [place] # (Auto) Eos # (Auto) Baso # (Auto) PT INR Sodium Potassium Chloride Carbon Dioxide Anion Gap BUN Creatinine Estimated Creat Clear Estimated GFR Est GFR ( Amer) Glucose Calcium Magnesium Total Bilirubin AST ALT Alkaline Phosphatase Troponin I Total Protein Albumin Globulin Albumin/Globulin Ratio TSH Free T4 Urine HCG, Qual Negative DS: Diagnosis Discharge Diagnosis (1) Sphincter of Oddi dysfunction: Status: Acute Code(s): K83.4 - Spasm of sphincter of Oddi (2) RUQ pain: Status: Acute Code(s): R10.11 - Right upper quadrant pain (3) Hepatic flexure syndrome: Status: Acute Code(s): K59.89 - Other specified functional intestinal disorders (4) Bloating: Status: Acute Code(s): R14.0 - Abdominal distension (gaseous) (5) Exocrine pancreatic insufficiency: Status: Acute Code(s): K86.81 - Exocrine pancreatic insufficiency Meds Home Medications and Allergies Home Medications ?Medication ?Instructions ?Recorded ?Confirmed ?Type alprazolam 0.5 mg tablet 0.5 mg PO HSP PRN anxiety/sleep 06/15/24 07/07/24 History cariprazine 1.5 mg capsule 1.5 mg PO DAILY 06/15/24 07/06/24 History (Keith) cyanocobalamin (vitamin B-12) 1,000 mcg SQ DIRECTED 06/15/24 07/07/24 History 1,000 mcg/mL injection solution dicyclomine 20 mg tablet 20 mg PO TIDP PRN stomach pain 06/15/24 07/07/24 History ergocalciferol (vitamin D2) 1,250 1,250 mcg PO WEEKLY 06/15/24 07/06/24 History mcg (50,000 unit) capsule famotidine 40 mg tablet 40 mg PO BID 06/15/24 07/06/24 History flecainide 50 mg tablet 50 mg PO BID 06/15/24 07/07/24 History folic acid 1 mg tablet 1 mg PO DAILY 06/15/24 07/06/24 History gabapentin 300 mg capsule 300 mg PO TID 06/15/24 07/06/24 History levothyroxine 175 mcg tablet 175 mcg PO DAILY 06/15/24 07/06/24 History (Synthroid) pantoprazole 40 mg tablet,delayed 40 mg PO DAILY 06/15/24 07/07/24 History release rimegepant 75 mg disintegrating 75 mg PO Q48H 06/15/24 07/07/24 History tablet (Nurtec ODT) rivaroxaban 10 mg tablet (Xarelto) 10 mg PO DAILY 06/15/24 07/06/24 History tizanidine 4 mg tablet 4 mg PO Q6H 06/15/24 07/06/24 History ubrogepant 100 mg tablet (Ubrelvy) 100 mg PO DAILY 06/15/24 07/06/24 History valsartan 80 mg tablet 80 mg PO DAILY 06/15/24 07/06/24 History buspirone 10 mg tablet 10 mg PO BID #60 tabs 07/06/24 Rx [id number] 1 cap PO .With meals #100 caps 07/06/24 Rx 36,000-114,000-180,000 unit capsule,delay rel (Creon) New Prescriptions to Start Prescriptions: buspirone Mario Stovall II [id number] [Creon] Mario Stovall II Allergies Allergy/AdvReac Type Severity Reaction Status Date / Time Sulfa (Sulfonamide Allergy Unknown Verified 07/06/24 13:40 Antibiotics) allergy reaction Discharge Plan Disposition Patient Disposition: Home, Self-Care Condition: Fair Follow up Plan Follow up with: Mario Sotvall II, MD [Staff Physician] - 07/23/24 10:15 am Grzegorz Santamaria MD [Primary Care Provider] - 07/08/24 3:15 pm Prescriptions/Medication Reconciliation: New buspirone 10 mg tablet 10 mg PO BID Qty: 60 12RF Rx Instructions: Please take 1 tablet p.o. nightly x 5 to 7 days and then 1 tablet p.o. twice daily thereafter Creon 36,000-114,000- 180,000 unit capsule,delayed release(DR/EC) 1 cap PO .With meals Qty: 100 12RF Rx Instructions: administer with meals and/or snacks Continued dicyclomine 20 mg tablet 20 mg PO TIDP PRN (Reason: stomach pain) Patient Comments: TAKE ONE TABLET BY MOUTH THREE TIMES DAILY NEEDED FOR ABDOMINAL CRAMPING/BLOATING.DIARRHEA (CAUTIONCONSTIPATION) Rx Instructions: TAKE ONE TABLET BY MOUTH THREE TIMES DAILY NEEDED FOR ABDOMINAL CRAMPING/BLOATING.DIARRHEA pantoprazole 40 mg tablet,delayed release (DR/EC) 40 mg PO DAILY Patient Comments: TAKE ONE TABLET BY MOUTH EVERY MORNING FOR HEARTBURN/STOMACH PAIN Rx Instructions: TAKE ONE TABLET BY MOUTH ONCE DAILY valsartan 80 mg tablet 80 mg PO DAILY Patient Comments: TAKE ONE TABLET BY MOUTH EVERY DAY FOR BLOOD PRESSURE Rx Instructions: TAKE ONE TABLET BY MOUTH ONCE DAILY tizanidine 4 mg tablet 4 mg PO Q6H Patient Comments: TAKE ONE TABLET BY MOUTH FOUR TIMES DAILY alprazolam 0.5 mg tablet 0.5 mg PO HSP PRN (Reason: anxiety/sleep) Patient Comments: TAKE ONE TABLET BY MOUTH EVERY NIGHT NEEDED FOR ANXIETY folic acid 1 mg tablet 1 mg PO DAILY Rx Instructions: TAKE ONE TABLET BY MOUTH ONCE DAILY Xarelto 10 mg tablet 10 mg PO DAILY Rx Instructions: TAKE ONE TABLET BY MOUTH ONCE DAILY ergocalciferol (vitamin D2) 1,250 mcg (50,000 unit) capsule 1,250 mcg PO WEEKLY famotidine 40 mg tablet 40 mg PO BID Rx Instructions: TAKE ONE TABLET BY MOUTH TWICE A DAY levothyroxine [Synthroid] 175 mcg tablet 175 mcg PO DAILY Vraylar 1.5 mg capsule 1.5 mg PO DAILY Patient Comments: TAKE ONE CAPSULE BY MOUTH EVERY DAY Rx Instructions: TAKE ONE TABLET BY MOUTH ONCE DAILY cyanocobalamin (vitamin B-12) 1,000 mcg/mL solution 1,000 mcg SQ DIRECTED Rx Instructions: EVERY 2 WEEKS flecainide 50 mg tablet 50 mg PO BID Patient Comments: TAKE ONE TABLET BY MOUTH TWICE DAILY Rx Instructions: TAKE ONE TABLET BY MOUTH TWICE DAILY gabapentin 300 mg capsule 300 mg PO TID Rx Instructions: TAKE ONE TABLET BY MOUTH THREE TIMES DAILY Nurtec ODT 75 mg tablet,disintegrating 75 mg PO Q48H Ubrelvy 100 mg tablet 100 mg PO DAILY Problem Reconciliation Problems Reviewed?: Yes Patient Discharge Instructions Patient Instructions: DI for Endoscopic Retrograde Cholangiopancreatography, DI for High Blood Pressure, DI for Moderate Sedation Print Language: Finnish Providers Primary Care Provider: Grzegorz Santamaria Admit Provider: Martín Morley Attending Provider: Martín Morley
--- NOTE | 2024-07-08 10:22 | SW/DCPLANNER ---
Spoke with patient on the phone. Patient stated that she is doing well. Patient stated that she is aware of her upcoming appointments. Patient stated that she is going to be picking up her new medicine today. Patient stated that she has no concerns or questions at this time. Hernandez Gomez
== END 2024-07-07 12:18 | disposition home or self-care (01) ==
LOC: 2ND 17:12
PROVIDERS: Internal Medicine Gastroenterology; Student in an Organized Health Care Education/Training Program; Admitting Provider Internal Medicine Adolescent Medicine; PCP Family Medicine; Visit Provider Internal Medicine Adolescent Medicine
PROC: (CPT 43260; principal; 2024-07-06 14:45)
DX: I16.0 Hypertensive urgency (principal); K83.4 Spasm of sphincter of Oddi; K86.81 Exocrine pancreatic insufficiency; E03.9 Hypothyroidism, unspecified; Z88.2 Allergy status to sulfonamides; Z79.899 Other long term (current) drug therapy; Z79.01 Long term (current) use of anticoagulants; I10 Essential (primary) hypertension; I82.890 Acute embolism and thrombosis of other specified veins
CPT/HCPCS: 43277; 36415; 74330; 76000; 80053; 81025; 83735; 84439; 84443; 84484; 85025; 85610; 93005; J3490; C1726; C1769; G0378; J0360; J1100; J1200; J1650; J1885; J2060; J2250; J2405; J2550; J3010; J7120